=== PATIENT | female | born 1960 | race Caucasian/White ===

== ENCOUNTER 2017-11-04 02:22 | Emergency (ER) | payer MEDICARE, MEDICAID ==
[~2017-11-04] VITALS: Ht 149.9 cm; Wt 46.0 kg
[~2017-11-04 02:22] MED LIST: CALC600T12 PO; HYDR-565 PO; LORA1TAB PO; MULT1TAB74 PO; SYN0.088T PO; TEMA15CA PO; TRAZ-146 PO; VITC500T PO
[2017-11-04] MEDS ORDERED: normal saline 1000ML IV soln IVB ONE (02:35)
[2017-11-04] MEDS ORDERED: LORazepam 2 mg/ml vial IV ONE (02:40)
[2017-11-04 02:46] LABS: BASOPHILS % (AUTO) 0.2 % (0-1); EOSINOPHILS # (AUTO) 0.3 X10'3 (0-0.9); EOSINOPHILS % (AUTO) 1.3 % (0-6); HEMATOCRIT 44.9 % (35.0-45.0); HEMOGLOBIN 15.2 g/dl (12.0-16.0); LYMPHOCYTES # (AUTO) 1.5 X10'3 (1.1-4.8); MEAN CORPUSCULAR VOLUME 91.4 FL (78-98); MEAN PLATELET VOLUME 7.1 FL (7.4-10.4); MONOCYTES # (AUTO) 1.4 X10'3 (0-0.9); MONOCYTES % (AUTO) 7.1 % (2-12); NEUTROPHILS # (AUTO) 16.2 X10'3 (1.8-7.7); NEUTROPHILS % (AUTO) 83.4 % (42-75); PLATELET COUNT 418 X10'3 (140-440); RED BLOOD COUNT 4.91 X10'6 (4.20-5.60); RED CELL DISTRIBUTION WIDTH 14.1 % (11.5-14.5); WHITE BLOOD COUNT 19.4 X10'3 (4.5-11.0)
[2017-11-04 03:05] LABS: ALANINE AMINOTRANSFERASE 25 U/L (12-78); ALBUMIN 4.5 G/DL (3.4-5.0); ALBUMIN/GLOBULIN RATIO 1.1 (1.1-1.5); ALKALINE PHOSPHATASE 108 IU/L (46-116); ANION GAP 13 (8-16); ASPARTATE AMINO TRANSFERASE 23 U/L (10-37); BILIRUBIN,TOTAL 0.8 MG/DL (0.1-1.0); BLOOD UREA NITROGEN 16 MG/DL (7-18); BUN/CREATININE RATIO 16.5 (6.6-38.0); CALCIUM 9.9 MG/DL (8.5-10.1); CHLORIDE 101 MMOL/L (99-107); CREATININE 0.97 MG/DL (0.40-0.90); GLUCOSE 161 MG/DL (70-104); POTASSIUM 3.5 MMOL/L (3.5-5.1); SODIUM 138 MMOL/L (135-145); TOTAL CARBON DIOXIDE 24.1 MMOL/L (24-32); TOTAL PROTEIN 8.5 G/DL (6.4-8.2); eGFR 59 ML/MIN
[2017-11-04 05:00] LABS: CLARITY,URINE Clear (Clear); COLOR,URINE Yellow (Yellow); GLUCOSE, URINE Negative (Neg); KETONES,URINE 15 mg/dl (Neg); LEUKOCYTE ESTERASE ,URINE Negative (Neg); NITRITES, URINE Negative (Neg); OCCULT BLOOD,URINE Negative (Neg); PROTEIN,URINE Trace mg/dl (Neg)
[2017-11-04 05:02] LABS: UA COLLECTION TYPE CLN CATCH MIDSTREAM
[2017-11-04 05:04] LABS: URINE AMPHETAMINE SCREEN POSITIVE (Neg); URINE BARBITUATE SCREEN NEGATIVE (Neg); URINE BENZODIAZEPINES SCREEN NEGATIVE (Neg); URINE CANNABINOID SCREEN NEGATIVE (Neg); URINE COCAINE SCREEN NEGATIVE (Neg); URINE METHADONE SCREEN NEGATIVE (Neg); URINE OPIATE SCREEN NEGATIVE (Neg); URINE PHENCYCLIDINE SCREEN NEGATIVE (Neg)
[2017-11-04 05:08] LABS: BACTERIA,URINE NONE SEEN /HPF (Neg); MUCUS STRANDS NONE SEEN /LPF (Neg); RBC,URINE NONE SEEN /HPF (0-2); SQUAMOUS EPITHELIAL CELL,UR NONE SEEN /LPF (FEW); WBC,URINE NONE SEEN /HPF (0-4)
[2017-11-04 07:04] VITALS: BP 119/87
== END 2017-11-04 07:05 | disposition home or self-care (01) ==
LOC: ER 02:23
DX: R56.9 Unspecified convulsions (principal); F15.10 Other stimulant abuse, uncomplicated; J44.9 Chronic obstructive pulmonary disease, unspecified; F17.210 Nicotine dependence, cigarettes, uncomplicated
CPT/HCPCS: 36415; 80053; 80305; 81001; 85025; 96361; 96374; 99284; J2060; J7030

== ENCOUNTER 2018-10-13 12:41 | Outpatient (CLI) | payer MEDICARE, MEDICAID ==
[~2018-10-13] VITALS: Ht 152.4 cm; Wt 52.2 kg
[~2018-10-13 12:41] MED LIST changes: +HYDR-4353 PO; -HYDR-565 PO; -TRAZ-146 PO; +TRAZ-219 PO; +fentaNYL/PF 50MCG/1 ML 2ML syringe ONE; +glycopyrrolate 0.2mg/ml inj ONE; +midazolam 2 mg/2 ml injection ONE; +propofol inj 20 ML IV ONE; +rocuronium 10mg/ml inj IV ONE
[2018-10-13] MEDS ORDERED: albuterol 2.5 MG/3 ML nebule NEB ONE (13:25)
== END 2018-10-13 23:59 | disposition home or self-care (01) ==
LOC: RT 12:41
PROVIDERS: ATTEND Family Medicine
DX: Z12.2 Encounter for screening for malignant neoplasm of respiratory organs (principal); J44.9 Chronic obstructive pulmonary disease, unspecified; M48.02 Spinal stenosis, cervical region; M47.892 Other spondylosis, cervical region; E03.9 Hypothyroidism, unspecified; M27.62 Post-osseointegration biological failure of dental implant; R06.09 Other forms of dyspnea; F17.210 Nicotine dependence, cigarettes, uncomplicated; Z71.6 Tobacco abuse counseling; Z91.89 Other specified personal risk factors, not elsewhere classified
CPT/HCPCS: 71046; 72050; 94060; 94727; 94729; 94760; J2250; J2704; J3010; J3490